=== PATIENT | male | born 1945 | race Two or more races ===

== ENCOUNTER 2021-07-27 13:20 | Emergency (ER) | payer OTHER ==
[~2021-07-27] VITALS: Ht 172.7 cm; Wt 79.4 kg
[2021-07-27] MEDS ORDERED: FINASTERIDE5 MG PO (15:08)
[2021-07-27] MEDS ORDERED: CILOSTAZOL50 MG PO (15:08)
[2021-07-27] MEDS ORDERED: FLUOXETINE HCL25 G1 MC (15:08)
[2021-07-27] MEDS ORDERED: TAMS0.4C PO (15:09)
[2021-07-27] MEDS ORDERED: GLUMETZA1000 MG PO (15:09)
[2021-07-27] MEDS ORDERED: ULTRAM50 MG PO (15:09)
[2021-07-27] MEDS ORDERED: LYRICA20 MG/1 ML PO (15:09)
[2021-07-27] MEDS ORDERED: PIOGLITAZ-GLIM1 EAC1 PO (15:10)
[2021-07-27] MEDS ORDERED: ZIPSOR25 MG PO (15:10)
[2021-07-27] MEDS ORDERED: QUETIAPINE FUM400 M1 PO (15:10)
[2021-07-27] MEDS ORDERED: ATORVASTATIN CA10 MG PO (15:10)
[2021-07-27] MEDS ORDERED: PEPCID AC20 MG PO (15:11)
[2021-07-27] MEDS ORDERED: COZAAR25 MG PO (15:11)
[2021-07-27] MEDS ORDERED: NASAL MIST126 ML NASAL (15:11)
[2021-07-27] MEDS ORDERED: MS CONTIN15 M1 PO (16:42)
[2021-07-27] MEDS ORDERED: NORFLEX100MG PO (16:42)
== END 2021-07-27 16:49 | disposition home or self-care (01) ==
LOC: ER 13:20
DX: M54.89 Other dorsalgia (principal); E11.9 Type 2 diabetes mellitus without complications; I10 Essential (primary) hypertension; Z79.84 Long term (current) use of oral hypoglycemic drugs